=== PATIENT | male | born 1990 | race American Indian/Alaskan Native ===

== ENCOUNTER 2018-08-26 11:34 | Emergency (ER) | payer MEDICAID ==
[~2018-08-26] VITALS: Ht 170.2 cm; Wt 130.0 kg
[~2018-08-26 11:34] MED LIST: ATI1T PO; ESOM20CA PO; ESOM40CA PO; FAMO-128 PO; HYDR-4383 PO; HYDR1TAB PO; METO10TA3 PO; ONDA4TAB6 PO
--- NOTE | 2018-08-26 12:05 | NUR ---
relieving RN for lunch, pt is resting quietly on bed, c/o n/v, "pancreatitis" x6 days, unable to pepe even clear liquid diet, c/o epigastric pain "sharp", 12/30, started IV on 1st attempt, blood drawn, pt unable to give urine sample at this time.
--- NOTE | 2018-08-26 12:10 | NUR ---
1st liter NS infusing w/o
[2018-08-26 12:15] LABS: BASOPHILS # (AUTO) 0.1 X10'3 (0-0.2); BASOPHILS % (AUTO) 0.6 % (0-1); EOSINOPHILS % (AUTO) 0.1 % (0-6); HEMATOCRIT 45.6 % (42.0-52.0); HEMOGLOBIN 16.1 g/dl (14.0-17.9); LYMPHOCYTES # (AUTO) 1.4 X10'3 (1.1-4.8); LYMPHOCYTES % (AUTO) 13.8 % (21-51); MEAN CORPUSCULAR HEMOGLOBIN 30.5 PG (27.0-31.0); MEAN CORPUSCULAR HGB CONC 35.3 g/dL (33.0-36.5); MEAN CORPUSCULAR VOLUME 86.3 FL (78-98); MEAN PLATELET VOLUME 7.8 FL (7.4-10.4); MONOCYTES # (AUTO) 0.7 X10'3 (0-0.9); MONOCYTES % (AUTO) 6.7 % (2-12); NEUTROPHILS % (AUTO) 78.8 % (42-75); PLATELET COUNT 332 X10'3 (140-440); RED BLOOD COUNT 5.28 X10'6 (4.70-6.10); RED CELL DISTRIBUTION WIDTH 13.2 % (11.5-14.5); WHITE BLOOD COUNT 10.2 X10'3 (4.5-11.0)
[2018-08-26 12:28] LABS: ALANINE AMINOTRANSFERASE 50 U/L (12-78); ALBUMIN 4.1 G/DL (3.4-5.0); ALKALINE PHOSPHATASE 49 IU/L (46-116); AMYLASE 27 U/L (25-115); ANION GAP 10 (8-16); ASPARTATE AMINO TRANSFERASE 16 U/L (10-37); BILIRUBIN,TOTAL 2.5 MG/DL (0.1-1.0); BLOOD UREA NITROGEN 14 MG/DL (7-18); BUN/CREATININE RATIO 11.6 (5.4-32.0); CALCIUM 9.2 MG/DL (8.5-10.1); CHLORIDE 97 MMOL/L (99-107); CREATININE 1.21 MG/DL (0.60-1.10); GLUCOSE 105 MG/DL (70-104); LIPASE 165 U/L (73-393); POTASSIUM 3.5 MMOL/L (3.5-5.1); SODIUM 134 MMOL/L (135-145); TOTAL CARBON DIOXIDE 26.9 MMOL/L (24-32); TOTAL PROTEIN 8.2 G/DL (6.4-8.2); eGFR 71 ML/MIN
[2018-08-26] MEDS ORDERED: normal saline 1000ML IV soln IVB ONE ×2 (12:30)
[2018-08-26] MEDS ORDERED: pantoprazole 40 MG vial IV ONE (12:30)
[2018-08-26] MEDS ORDERED: ondansetron/PF 4mg/2ml inj IV ONE (12:30)
[2018-08-26] MEDS ORDERED: ESOMEPRAZOLE 40 MG VIAL IV ONE (12:35)
[2018-08-26] MEDS ORDERED: mag hydrox/Alum hydrox/simeth 30ml oral suspension PO ONE (13:00)
[2018-08-26] MEDS ORDERED: famotidine 20mg tablet PO ONE (13:00)
[2018-08-26] MEDS ORDERED: proCHLORperazine 10 MG/2 ml inj IV ONE (13:00)
[2018-08-26] MEDS ORDERED: LIDOcaine Viscous 15ml cup PO ONE (13:00)
[2018-08-26 14:10] VITALS: BP 146/91
[2018-08-26] MEDS ORDERED: metoclopramide 5 mg/ml inj IV ONE (14:45)
[2018-08-26] MEDS ORDERED: ketorolac trometh. 30mg/ml inj. IV ONE (14:45)
[2018-08-26] MEDS ORDERED: diphenhydrAMINE 50 mg/ml inj IV ONE (14:45)
[2018-08-26] MEDS ORDERED: ONDA8TAB6 PO (14:47)
[2018-08-26] MEDS ORDERED: SUCR1TAB34 PO (14:47)
--- NOTE | 2018-08-26 15:07 | NUR ---
PATIENT FEELING BETTER, FURTHER MEDICATIONS NOT REQUIRED
== END 2018-08-26 15:08 | disposition home or self-care (01) ==
LOC: ER 11:35
DX: R11.2 Nausea with vomiting, unspecified (principal); K21.9 Gastro-esophageal reflux disease without esophagitis; Z90.49 Acquired absence of other specified parts of digestive tract; Z79.899 Other long term (current) drug therapy
CPT/HCPCS: 36415; 80053; 82150; 83690; 85025; 85610; 96361; 96374; 96375; 99283; J0780; J2405; J7030

== ENCOUNTER 2018-10-09 00:52 | Emergency (ER) | payer MEDICAID ==
[~2018-10-09] VITALS: Ht 172.7 cm; Wt 100.0 kg
[~2018-10-09 00:52] MED LIST changes: +ONDA8TAB6 PO; +SUCR1TAB34 PO
[2018-10-09] MEDS ORDERED: ondansetron/PF 4mg/2ml inj IV ONE ×2 (01:15→02:25)
[2018-10-09 01:40] LABS: BASOPHILS # (AUTO) 0.1 X10'3 (0-0.2); BASOPHILS % (AUTO) 0.9 % (0-1); EOSINOPHILS % (AUTO) 0 % (0-6); HEMATOCRIT 50.3 % (42.0-52.0); HEMOGLOBIN 17.6 g/dl (14.0-17.9); LYMPHOCYTES # (AUTO) 1.7 X10'3 (1.1-4.8); LYMPHOCYTES % (AUTO) 15.3 % (21-51); MEAN CORPUSCULAR HEMOGLOBIN 30.1 PG (27.0-31.0); MEAN CORPUSCULAR VOLUME 85.9 FL (78-98); MEAN PLATELET VOLUME 8.1 FL (7.4-10.4); NEUTROPHILS # (AUTO) 8.6 X10'3 (1.8-7.7); NEUTROPHILS % (AUTO) 74.8 % (42-75); PLATELET COUNT 303 X10'3 (140-440); RED BLOOD COUNT 5.85 X10'6 (4.70-6.10); RED CELL DISTRIBUTION WIDTH 13.4 % (11.5-14.5); WHITE BLOOD COUNT 11.4 X10'3 (4.5-11.0)
[2018-10-09 01:52] LABS: ALANINE AMINOTRANSFERASE 33 U/L (12-78); ALBUMIN 4.6 G/DL (3.4-5.0); ALBUMIN/GLOBULIN RATIO 1.1 (1.1-1.5); ALKALINE PHOSPHATASE 51 IU/L (46-116); ANION GAP 13 (8-16); ASPARTATE AMINO TRANSFERASE 14 U/L (10-37); BILIRUBIN,TOTAL 2.8 MG/DL (0.1-1.0); BLOOD UREA NITROGEN 12 MG/DL (7-18); BUN/CREATININE RATIO 9.2 (5.4-32.0); CALCIUM 9.2 MG/DL (8.5-10.1); CHLORIDE 98 MMOL/L (99-107); GLUCOSE 153 MG/DL (70-104); POTASSIUM 3.1 MMOL/L (3.5-5.1); SODIUM 134 MMOL/L (135-145); TOTAL CARBON DIOXIDE 23.4 MMOL/L (24-32); TOTAL PROTEIN 8.8 G/DL (6.4-8.2); eGFR 65 ML/MIN
[2018-10-09] MEDS ORDERED: diphenhydrAMINE 50 mg/ml inj IV ONE (02:25)
[2018-10-09] MEDS ORDERED: proCHLORperazine 10 MG/2 ml inj IV ONE (02:25)
[2018-10-09] MEDS ORDERED: mag hydrox/Alum hydrox/simeth 30ml oral suspension PO ONE (02:25)
[2018-10-09] MEDS ORDERED: LIDOcaine Viscous 15ml cup PO ONE (02:25)
[2018-10-09] MEDS ORDERED: potassium Cl 20mEq in D5-NS 1,000 ML IV ONE (02:25)
[2018-10-09] MEDS ORDERED: pantoprazole 40 MG vial IV ONE (02:25)
[2018-10-09] MEDS ORDERED: LORazepam 2 mg/ml vial IV ONE (02:25)
[2018-10-09] MEDS ORDERED: famotidine/PF 10 mg/ml inj IV ONE (02:25)
[2018-10-09] MEDS ORDERED: ESOMEPRAZOLE 40 MG VIAL IV ONE (02:32)
[2018-10-09 02:34] LABS: LIPASE 103 U/L (73-393)
[2018-10-09] MEDS ORDERED: ONDA8TAB6 PO (04:09)
[2018-10-09] MEDS ORDERED: PANT-47 PO (04:09)
[2018-10-09] MEDS ORDERED: SUCR1TAB34 PO (04:09)
[2018-10-09 04:42] VITALS: BP 135/80
== END 2018-10-09 06:09 | disposition home or self-care (01) ==
LOC: ER 00:53
DX: K29.00 Acute gastritis without bleeding (principal); F41.9 Anxiety disorder, unspecified; K21.9 Gastro-esophageal reflux disease without esophagitis; Z90.49 Acquired absence of other specified parts of digestive tract; Z79.899 Other long term (current) drug therapy
CPT/HCPCS: 36415; 80053; 83690; 85025; 85610; 96361; 96374; 96375; 99284; J0780; J1200; J2060; J2405; J3480; J3490

== ENCOUNTER 2018-11-13 00:06 | Emergency (ER) | payer MEDICAID ==
[~2018-11-13] VITALS: Ht 167.6 cm; Wt 92.5 kg
[~2018-11-13 00:06] MED LIST changes: +PANT-47 PO
[2018-11-13] MEDS ORDERED: ondansetron/PF 4mg/2ml inj IV ONE (01:00)
--- NOTE | 2018-11-13 01:01 | NUR ---
piv in place, labs drawn, verbal rec eived from dr. patterson for zofran 8 mg iv. pt reprots he thinks a gi cocktail will help him once he gets some antinausea meds. has had episode like this before.
[2018-11-13 01:15] LABS: BASOPHILS # (AUTO) 0.1 X10'3 (0-0.2); BASOPHILS % (AUTO) 0.5 % (0-1); EOSINOPHILS % (AUTO) 0 % (0-6); HEMOGLOBIN 17.1 g/dl (14.0-17.9); LYMPHOCYTES # (AUTO) 0.9 X10'3 (1.1-4.8); LYMPHOCYTES % (AUTO) 8.4 % (21-51); MEAN CORPUSCULAR HEMOGLOBIN 30.1 PG (27.0-31.0); MEAN CORPUSCULAR HGB CONC 34.3 g/dL (33.0-36.5); MEAN CORPUSCULAR VOLUME 87.6 FL (78-98); MEAN PLATELET VOLUME 7.5 FL (7.4-10.4); MONOCYTES # (AUTO) 0.2 X10'3 (0-0.9); MONOCYTES % (AUTO) 2.1 % (2-12); PLATELET COUNT 349 X10'3 (140-440); RED CELL DISTRIBUTION WIDTH 13.6 % (11.5-14.5); WHITE BLOOD COUNT 11.2 X10'3 (4.5-11.0)
[2018-11-13] MEDS ORDERED: famotidine/PF 10 mg/ml inj IV ONE (01:20)
[2018-11-13] MEDS ORDERED: pantoprazole 40 MG vial IV ONE (01:20)
[2018-11-13] MEDS ORDERED: normal saline 1000ml 1,000 ML IV ONE ×2 (01:20→04:20)
[2018-11-13] MEDS ORDERED: LIDOcaine Viscous 15ml cup PO ONE (01:20)
[2018-11-13] MEDS ORDERED: mag hydrox/Alum hydrox/simeth 30ml oral suspension PO ONE (01:20)
[2018-11-13 01:26] LABS: ALANINE AMINOTRANSFERASE 33 U/L (12-78); ALBUMIN 4.6 G/DL (3.4-5.0); ALKALINE PHOSPHATASE 52 IU/L (46-116); ANION GAP 14 (8-16); ASPARTATE AMINO TRANSFERASE 15 U/L (10-37); BILIRUBIN,TOTAL 1.4 MG/DL (0.1-1.0); BLOOD UREA NITROGEN 13 MG/DL (7-18); BUN/CREATININE RATIO 10.1 (5.4-32.0); CALCIUM 10.3 MG/DL (8.5-10.1); CHLORIDE 104 MMOL/L (99-107); CREATININE 1.29 MG/DL (0.60-1.10); GLUCOSE 142 MG/DL (70-104); LIPASE 112 U/L (73-393); POTASSIUM 4.2 MMOL/L (3.5-5.1); SODIUM 141 MMOL/L (135-145); TOTAL CARBON DIOXIDE 23.1 MMOL/L (24-32); eGFR 65 ML/MIN
[2018-11-13] MEDS ORDERED: metoclopramide 5 mg/ml inj IV ONE (02:15)
[2018-11-13] MEDS ORDERED: ketorolac trometh. 30mg/ml inj. IV ONE (02:30)
[2018-11-13] MEDS ORDERED: diphenhydrAMINE 50 mg/ml inj IV ONE (02:30)
[2018-11-13] MEDS ORDERED: fentaNYL/PF 50MCG/1 ML 2ML syringe IV ONE (02:30)
[2018-11-13] MEDS ORDERED: sucralfate 1gm/10ml UD suspension PO ONE (02:30)
[2018-11-13] MEDS ORDERED: LORazepam 2 mg/ml vial IV ONE (02:30)
[2018-11-13] MEDS ORDERED: proCHLORperazine 10 MG/2 ml inj IV ONE (03:10)
[2018-11-13 03:21] LABS: CLARITY,URINE CLEAR (Clear); COLOR,URINE AMBER (Yellow); GLUCOSE, URINE NEGATIVE (Neg); KETONES,URINE >=80 mg/dl (Neg); LEUKOCYTE ESTERASE ,URINE NEGATIVE (Neg); NITRITES, URINE NEGATIVE (Neg); OCCULT BLOOD,URINE NEGATIVE (Neg); PROTEIN,URINE 30 mg/dl (Neg)
[2018-11-13 03:22] LABS: UA COLLECTION TYPE CLN CATCH MIDSTREAM
[2018-11-13 03:31] LABS: BACTERIA,URINE NONE SEEN /HPF (Neg); MUCUS STRANDS MODERATE /LPF (Neg); SQUAMOUS EPITHELIAL CELL,UR NONE SEEN /LPF (FEW); WBC,URINE NONE SEEN /HPF (0-4)
[2018-11-13 03:32] LABS: RBC,URINE 0-2 /HPF (0-2)
[2018-11-13] MEDS ORDERED: haloperidol lactate 5mg/ml inj IM ONE (04:20)
[2018-11-13] MEDS ORDERED: ONDA8TAB6 PO (05:11)
[2018-11-13] MEDS ORDERED: PANT-47 PO (05:11)
[2018-11-13] MEDS ORDERED: SUCR1TAB34 PO (05:11)
[2018-11-13 06:00] VITALS: BP 130/77
== END 2018-11-13 06:05 | disposition home or self-care (01) ==
LOC: ER 00:07
DX: K29.70 Gastritis, unspecified, without bleeding (principal); K21.9 Gastro-esophageal reflux disease without esophagitis; F12.90 Cannabis use, unspecified, uncomplicated; Z90.49 Acquired absence of other specified parts of digestive tract; Z88.8 Allergy status to other drugs, medicaments and biological substances; Z79.899 Other long term (current) drug therapy
CPT/HCPCS: 36415; 80053; 81001; 83690; 85025; 96361; 96372; 96374; 96375; 99283; C9113; J0780; J1200; J1630; J1885; J2060; J2405; J2765; J3010; J3490; J7030

== ENCOUNTER 2018-12-04 22:36 | Emergency (ER) | payer MEDICAID ==
[~2018-12-04] VITALS: Ht 172.7 cm; Wt 90.0 kg
[2018-12-04 23:22] LABS: ALANINE AMINOTRANSFERASE 32 U/L (12-78); ALBUMIN 4.2 G/DL (3.4-5.0); ALBUMIN/GLOBULIN RATIO 1.1 (1.1-1.5); ALKALINE PHOSPHATASE 42 IU/L (46-116); ANION GAP 10 (8-16); ASPARTATE AMINO TRANSFERASE 15 U/L (10-37); BILIRUBIN,TOTAL 2.5 MG/DL (0.1-1.0); BLOOD UREA NITROGEN 13 MG/DL (7-18); BUN/CREATININE RATIO 9.7 (5.4-32.0); CALCIUM 9.3 MG/DL (8.5-10.1); CHLORIDE 100 MMOL/L (99-107); CREATININE 1.34 MG/DL (0.60-1.10); GLUCOSE 106 MG/DL (70-104); POTASSIUM 3.6 MMOL/L (3.5-5.1); SODIUM 139 MMOL/L (135-145); TOTAL CARBON DIOXIDE 29.4 MMOL/L (24-32); TOTAL PROTEIN 8.1 G/DL (6.4-8.2); eGFR 63 ML/MIN
[2018-12-04] MEDS ORDERED: DOCU100C41 PO (23:30)
--- NOTE | 2018-12-04 23:39 | NUR ---
PT STATES HE HAS NO URINE TO PROVIDE
[2018-12-05 00:01] LABS: BASOPHILS # (AUTO) 0.1 X10'3 (0-0.2); BASOPHILS % (AUTO) 0.7 % (0-1); EOSINOPHILS % (AUTO) 0.4 % (0-6); HEMATOCRIT 47.5 % (42.0-52.0); HEMOGLOBIN 16.5 g/dl (14.0-17.9); LYMPHOCYTES # (AUTO) 1.9 X10'3 (1.1-4.8); MEAN CORPUSCULAR HEMOGLOBIN 30.6 PG (27.0-31.0); MEAN CORPUSCULAR HGB CONC 34.8 g/dL (33.0-36.5); MEAN CORPUSCULAR VOLUME 88.1 FL (78-98); MEAN PLATELET VOLUME 8.3 FL (7.4-10.4); MONOCYTES # (AUTO) 0.7 X10'3 (0-0.9); NEUTROPHILS # (AUTO) 7.6 X10'3 (1.8-7.7); NEUTROPHILS % (AUTO) 73.9 % (42-75); PLATELET COUNT 337 X10'3 (140-440); RED CELL DISTRIBUTION WIDTH 13.7 % (11.5-14.5); WHITE BLOOD COUNT 10.3 X10'3 (4.5-11.0)
[2018-12-05] MEDS ORDERED: LIDOcaine Viscous 15ml cup PO ONE (00:40)
[2018-12-05] MEDS ORDERED: mag hydrox/Alum hydrox/simeth 30ml oral suspension PO ONE (00:40)
[2018-12-05] MEDS ORDERED: pantoprazole 40 MG vial IV ONE (00:40)
[2018-12-05] MEDS ORDERED: normal saline 1000ML IV soln IVB ONE ×2 (00:40→02:55)
[2018-12-05] MEDS ORDERED: ondansetron/PF 4mg/2ml inj IV ONE (00:40)
[2018-12-05 00:53] LABS: LIPASE 107 U/L (73-393)
[2018-12-05] MEDS: morphine 2 MG/ML inj. syringe IV PRN ×2 (02:02→02:18)
[2018-12-05 02:08] LABS: CLARITY,URINE CLEAR (Clear); COLOR,URINE AMBER (Yellow); GLUCOSE, URINE NEGATIVE (Neg); KETONES,URINE 15 mg/dl (Neg); LEUKOCYTE ESTERASE ,URINE NEGATIVE (Neg); NITRITES, URINE NEGATIVE (Neg); OCCULT BLOOD,URINE NEGATIVE (Neg); PH,URINE 5.5 (4.8-8.0); PROTEIN,URINE TRACE mg/dl (Neg)
[2018-12-05 02:09] LABS: UA COLLECTION TYPE VOIDED
--- NOTE | 2018-12-05 02:22 | NUR ---
COVERED HIM WITH ANOTHER WARMED BLANKET.
[2018-12-05 02:39] LABS: RBC,URINE 0-2 /HPF (0-2)
[2018-12-05 02:40] LABS: BACTERIA,URINE FEW /HPF (Neg); MUCUS STRANDS MANY /LPF (Neg); SQUAMOUS EPITHELIAL CELL,UR NONE SEEN /LPF (FEW)
[2018-12-05] MEDS ORDERED: ONDA4TAB6 PO (02:55)
[2018-12-05] MEDS ORDERED: morphine 2 MG/ML inj. syringe IV PRN (02:55)
[2018-12-05] MEDS ORDERED: ketorolac tromethamine 15mg/ml inj. IV ONE (02:55)
[2018-12-05 04:14] VITALS: BP 127/77
== END 2018-12-05 04:16 | disposition home or self-care (01) ==
LOC: ER 22:38
DX: E86.0 Dehydration (principal); R11.10 Vomiting, unspecified; R10.84 Generalized abdominal pain; K21.9 Gastro-esophageal reflux disease without esophagitis; Z90.49 Acquired absence of other specified parts of digestive tract; Z79.899 Other long term (current) drug therapy; Z88.6 Allergy status to analgesic agent; Z88.5 Allergy status to narcotic agent
CPT/HCPCS: 36415; 80053; 81001; 83690; 83735; 85025; 85610; 87088; 96361; 96374; 96375; 99283; C9113; J1885; J2270; J2405; J7030

== ENCOUNTER 2019-11-28 | Observation (INO) | payer MEDICAID ==
[~2019-11-28] VITALS: Ht 177.8 cm; Wt 109.1 kg
[~2019-11-28] MED LIST changes: -ATI1T PO; +DOCU100C41 PO; -ESOM20CA PO; -ESOM40CA PO; -HYDR-4383 PO; -HYDR1TAB PO; -METO10TA3 PO; -PANT-47 PO
[2019-11-28 00:50] LABS: BASOPHILS # (AUTO) 0.1 X10'3 (0-0.2); BASOPHILS % (AUTO) 0.5 % (0-1); EOSINOPHILS % (AUTO) 0.3 % (0-6); HEMATOCRIT 50.3 % (42.0-52.0); HEMOGLOBIN 17.3 g/dl (14.0-17.9); LYMPHOCYTES % (AUTO) 14.5 % (21-51); MEAN CORPUSCULAR HEMOGLOBIN 30.8 PG (27.0-31.0); MEAN CORPUSCULAR HGB CONC 34.4 g/dL (33.0-36.5); MEAN CORPUSCULAR VOLUME 89.5 FL (78-98); MEAN PLATELET VOLUME 7.8 FL (7.4-10.4); MONOCYTES # (AUTO) 0.9 X10'3 (0-0.9); MONOCYTES % (AUTO) 6.6 % (2-12); NEUTROPHILS # (AUTO) 10.9 X10'3 (1.8-7.7); NEUTROPHILS % (AUTO) 78.1 % (42-75); PLATELET COUNT 421 X10'3 (140-440); RED BLOOD COUNT 5.62 X10'6 (4.70-6.10); RED CELL DISTRIBUTION WIDTH 13.7 % (11.5-14.5); WHITE BLOOD COUNT 13.9 X10'3 (4.5-11.0)
[2019-11-28 00:56] LABS: CLARITY,URINE CLEAR (Clear); COLOR,URINE YELLOW (Yellow); GLUCOSE, URINE NEGATIVE (Neg); KETONES,URINE NEGATIVE (Neg); LEUKOCYTE ESTERASE ,URINE NEGATIVE (Neg); NITRITES, URINE NEGATIVE (Neg); OCCULT BLOOD,URINE NEGATIVE (Neg); PH,URINE 5.5 (4.8-8.0); PROTEIN,URINE TRACE mg/dl (Neg)
[2019-11-28 00:58] LABS: ALANINE AMINOTRANSFERASE 35 U/L (12-78); ALBUMIN 4.6 G/DL (3.4-5.0); ALKALINE PHOSPHATASE 46 IU/L (46-116); ANION GAP 12 (8-16); ASPARTATE AMINO TRANSFERASE 16 U/L (10-37); BILIRUBIN,TOTAL 1.5 MG/DL (0.1-1.0); BLOOD UREA NITROGEN 22 MG/DL (7-18); BUN/CREATININE RATIO 11.6 (5.4-32.0); CALCIUM 9.7 MG/DL (8.5-10.1); CHLORIDE 98 MMOL/L (99-107); GLUCOSE 142 MG/DL (70-104); LIPASE 119 U/L (73-393); POTASSIUM 3.5 MMOL/L (3.5-5.1); SODIUM 137 MMOL/L (135-145); TOTAL CARBON DIOXIDE 27.3 MMOL/L (24-32); TOTAL PROTEIN 9.3 G/DL (6.4-8.2); eGFR 42 ML/MIN
[2019-11-28 01:15] LABS: BACTERIA,URINE FEW /HPF (Neg); MUCUS STRANDS MANY /LPF (Neg); RBC,URINE NONE SEEN /HPF (0-2); SQUAMOUS EPITHELIAL CELL,UR FEW /LPF (FEW); UA COLLECTION TYPE CLN CATCH MIDSTREAM
[2019-11-28] MEDS ORDERED: famotidine/PF 10 mg/ml inj IV ONE (01:40)
[2019-11-28] MEDS ORDERED: ondansetron/PF 4mg/2ml inj IV ONE (01:40)
[2019-11-28] MEDS ORDERED: normal saline 1000ml 1,000 ML IV ONE ×2 (01:40)
[2019-11-28] MEDS ORDERED: morphine 10mg/ml inj. IV ONE ×2 (02:10→03:35)
[2019-11-28] MEDS ORDERED: haloperidol lactate 5mg/ml inj IM ONE (02:10)
[2019-11-28] MEDS ORDERED: mag hydrox/Alum hydrox/simeth 30ml oral suspension PO PRN (04:00)
[2019-11-28] MEDS ORDERED: potassium Cl 20 mEq SR tablet PO PRN ×2 (04:00)
[2019-11-28] MEDS ORDERED: magnesium hydroxide 30ml (MOM) UD suspension PO PRN (04:00)
[2019-11-28] MEDS ORDERED: acetaminophen 325mg tablet PO PRN (04:00)
[2019-11-28] MEDS ORDERED: magnesium 4gm in 100ml NS 100 ML IV PRN (04:00)
[2019-11-28] MEDS ORDERED: potassium CL 10mEq/100ml bag 100 ML IV PRN ×2 (04:00)
[2019-11-28] MEDS ORDERED: magnesium Cl slow-release 64mg tablet PO PRN (04:00)
[2019-11-28] MEDS ORDERED: proCHLORperazine 10 MG/2 ml inj IV PRN (04:00)
[2019-11-28] MEDS ORDERED: magnesium 2GM in 50ml NS 50 ML IV PRN (04:00)
[2019-11-28] MEDS ORDERED: OMEP40CA13 PO (04:34)
[2019-11-28 05:30] VITALS: BP 116/70
--- NOTE | 2019-11-28 05:30 | NUR ---
RECEIVED PT FROM ER VIA WC FOLLOWING VERBAL REPORT FROM SUKHI. SUSANA, 2 RN SKIN CHECK COMPLETE. PT C/O NAUSEA. COMPAZINE IV ADMINISTERED.
[2019-11-28] MEDS: normal saline 1000ml 1,000 ML IV SCH ×3 (05:46→15:05)
--- NOTE | 2019-11-28 06:15 | NUR ---
Patient in room [facility]. I have received report from Ewa WHITFIELD and had the opportunity to ask questions and assume patient care.
--- NOTE | 2019-11-28 06:36 | NUR ---
Problems reprioritized. Patient report given, questions answered & plan of care reviewed with GUY.
[2019-11-28 07:34] VITALS: BP 115/71
[2019-11-28] MEDS: K and/or MAG REPLACEMENT MC SCH ×2 (08:00→20:00)
[2019-11-28] MEDS: pantoprazole 40 MG vial IV SCH (08:42)
[2019-11-28] MEDS: ondansetron/PF 4mg/2ml inj IV PRN (08:51)
[2019-11-28 11:00] VITALS: BP 116/73
[2019-11-28] MEDS: HYDROcodone/acetaminophen 5mg/325mg tablet PO PRN ×3 (13:11→23:05)
--- NOTE | 2019-11-28 14:30 | NUR ---
Dr. Yates paged regarding CT results. Awaiting callback.
[2019-11-28] MEDS ORDERED: ONDA4TAB12 PO (16:29)
--- NOTE | 2019-11-28 18:33 | NUR ---
Problems reprioritized. Patient report given, questions answered & plan of care reviewed with Jennifer WHITFIELD.
--- NOTE | 2019-11-28 18:34 | NUR ---
Problems reprioritized. Patient report given, questions answered & plan of care reviewed with Jennifer WHITFIELD.
--- NOTE | 2019-11-28 18:36 | NUR ---
Patient in room [facility]. I have received report from Tracie WHITFIELD and had the opportunity to ask questions and assume patient care.
[2019-11-28 20:00] VITALS: BP 116/78
[2019-11-28] MEDS: morphine 2 MG/ML inj. syringe IV PRN (20:36)
[2019-11-29 00:17] VITALS: BP 127/86
[2019-11-29] MEDS: normal saline 1000ml 1,000 ML IV SCH (00:56)
[2019-11-29] MEDS: morphine 2 MG/ML inj. syringe IV PRN (04:39)
[2019-11-29 05:29] LABS: BASOPHILS # (AUTO) 0.1 X10'3 (0-0.2); BASOPHILS % (AUTO) 0.9 % (0-1); EOSINOPHILS # (AUTO) 0.1 X10'3 (0-0.9); EOSINOPHILS % (AUTO) 1.4 % (0-6); HEMATOCRIT 39.2 % (42.0-52.0); HEMOGLOBIN 13.7 g/dl (14.0-17.9); LYMPHOCYTES # (AUTO) 3.3 X10'3 (1.1-4.8); LYMPHOCYTES % (AUTO) 41.6 % (21-51); MEAN CORPUSCULAR HEMOGLOBIN 31.2 PG (27.0-31.0); MEAN CORPUSCULAR HGB CONC 34.9 g/dL (33.0-36.5); MEAN CORPUSCULAR VOLUME 89.4 FL (78-98); MEAN PLATELET VOLUME 7.4 FL (7.4-10.4); MONOCYTES # (AUTO) 0.6 X10'3 (0-0.9); MONOCYTES % (AUTO) 7.4 % (2-12); NEUTROPHILS # (AUTO) 3.9 X10'3 (1.8-7.7); NEUTROPHILS % (AUTO) 48.7 % (42-75); PLATELET COUNT 270 X10'3 (140-440); RED BLOOD COUNT 4.39 X10'6 (4.70-6.10); RED CELL DISTRIBUTION WIDTH 13.2 % (11.5-14.5); WHITE BLOOD COUNT 7.9 X10'3 (4.5-11.0)
[2019-11-29 05:59] LABS: ALANINE AMINOTRANSFERASE 25 U/L (12-78); ALBUMIN 3.1 G/DL (3.4-5.0); ALKALINE PHOSPHATASE 28 IU/L (46-116); ANION GAP 5 (8-16); ASPARTATE AMINO TRANSFERASE 17 U/L (10-37); BILIRUBIN,TOTAL 1.3 MG/DL (0.1-1.0); BLOOD UREA NITROGEN 12 MG/DL (7-18); BUN/CREATININE RATIO 11.3 (5.4-32.0); CALCIUM 7.8 MG/DL (8.5-10.1); CHLORIDE 105 MMOL/L (99-107); CREATININE 1.06 MG/DL (0.60-1.10); GLUCOSE 92 MG/DL (70-104); MAGNESIUM 2.1 MG/DL (1.5-2.4); POTASSIUM 3.7 MMOL/L (3.5-5.1); SODIUM 137 MMOL/L (135-145); TOTAL CARBON DIOXIDE 27.2 MMOL/L (24-32); TOTAL PROTEIN 6.1 G/DL (6.4-8.2); eGFR 81 ML/MIN
--- NOTE | 2019-11-29 06:29 | NUR ---
Problems reprioritized. Patient report given, questions answered & plan of care reviewed with Tracie WHITFIELD.
--- NOTE | 2019-11-29 06:30 | NUR ---
Patient in room [facility]. I have received report from Jennifer WHITFIELD and had the opportunity to ask questions and assume patient care.
--- NOTE | 2019-11-29 06:41 | NUR ---
Patient in room [facility]. I have received report from Jennifer WHITFIELD and had the opportunity to ask questions and assume patient care.
[2019-11-29 08:00] VITALS: BP 135/82
[2019-11-29] MEDS: K and/or MAG REPLACEMENT MC SCH (08:00)
[2019-11-29] MEDS: pantoprazole 40 MG vial IV SCH (08:26)
[2019-11-29] MEDS: ondansetron/PF 4mg/2ml inj IV PRN (08:33)
[2019-11-29] MEDS: HYDROcodone/acetaminophen 5mg/325mg tablet PO PRN (09:25)
== END 2019-11-29 11:38 | disposition home or self-care (01) ==
LOC: ER → ED HOLD 03:56 → SUR 3N 05:35
PROVIDERS: ADMIT Family Medicine; ATTEND Family Medicine
DX: R11.2 Nausea with vomiting, unspecified (principal); N17.0 Acute kidney failure with tubular necrosis; K21.9 Gastro-esophageal reflux disease without esophagitis; Z87.19 Personal history of other diseases of the digestive system; Z90.49 Acquired absence of other specified parts of digestive tract; Z88.8 Allergy status to other drugs, medicaments and biological substances
CPT/HCPCS: 36415; 74176; 80053; 81001; 83690; 83735; 85025; 87081; 87088; 96361; 96372; 96374; 96375; 96376; 99285; C9113; G0378; J0780; J1630; J2270; J2405; J3490; J7030

== ENCOUNTER 2020-01-05 10:24 | Emergency (ER) | payer MEDICAID ==
[~2020-01-05] VITALS: Ht 172.7 cm; Wt 108.9 kg
[~2020-01-05 10:24] MED LIST changes: -DOCU100C41 PO; -FAMO-128 PO; +OMEP40CA13 PO; +ONDA4TAB12 PO; -ONDA4TAB6 PO; -ONDA8TAB6 PO; -SUCR1TAB34 PO
[2020-01-05] MEDS ORDERED: normal saline 1000ML IV soln IVB ONE ×2 (11:10→12:15)
[2020-01-05] MEDS ORDERED: ondansetron/PF 4mg/2ml inj IV ONE (11:10)
[2020-01-05 11:30] LABS: BASOPHILS # (AUTO) 0.1 X10'3 (0-0.2); BASOPHILS % (AUTO) 0.6 % (0-1); EOSINOPHILS % (AUTO) 0.1 % (0-6); HEMATOCRIT 48.4 % (42.0-52.0); HEMOGLOBIN 16.6 g/dl (14.0-17.9); LYMPHOCYTES # (AUTO) 1.4 X10'3 (1.1-4.8); LYMPHOCYTES % (AUTO) 13.5 % (21-51); MEAN CORPUSCULAR HEMOGLOBIN 30.5 PG (27.0-31.0); MEAN CORPUSCULAR HGB CONC 34.3 g/dL (33.0-36.5); MEAN CORPUSCULAR VOLUME 89.2 FL (78-98); MEAN PLATELET VOLUME 7.5 FL (7.4-10.4); MONOCYTES # (AUTO) 0.8 X10'3 (0-0.9); MONOCYTES % (AUTO) 7.9 % (2-12); NEUTROPHILS # (AUTO) 8.3 X10'3 (1.8-7.7); NEUTROPHILS % (AUTO) 77.9 % (42-75); PLATELET COUNT 334 X10'3 (140-440); RED BLOOD COUNT 5.43 X10'6 (4.70-6.10); WHITE BLOOD COUNT 10.7 X10'3 (4.5-11.0)
[2020-01-05 12:00] LABS: CLARITY,URINE CLEAR (Clear); COLOR,URINE YELLOW (Yellow); GLUCOSE, URINE NEGATIVE (Neg); KETONES,URINE NEGATIVE (Neg); LEUKOCYTE ESTERASE ,URINE NEGATIVE (Neg); NITRITES, URINE NEGATIVE (Neg); OCCULT BLOOD,URINE NEGATIVE (Neg); PROTEIN,URINE 30 mg/dl (Neg)
[2020-01-05 12:00] LABS: ALANINE AMINOTRANSFERASE 28 U/L (12-78); ALBUMIN 4.5 G/DL (3.4-5.0); ALKALINE PHOSPHATASE 43 IU/L (46-116); ANION GAP 13 (8-16); ASPARTATE AMINO TRANSFERASE 15 U/L (10-37); BILIRUBIN,TOTAL 2.6 MG/DL (0.1-1.0); BLOOD UREA NITROGEN 16 MG/DL (7-18); BUN/CREATININE RATIO 13.3 (5.4-32.0); CALCIUM 9.6 MG/DL (8.5-10.1); CHLORIDE 98 MMOL/L (99-107); GLUCOSE 115 MG/DL (70-104); LIPASE 150 U/L (73-393); POTASSIUM 3.4 MMOL/L (3.5-5.1); SODIUM 137 MMOL/L (135-145); TOTAL CARBON DIOXIDE 26.5 MMOL/L (24-32); TOTAL PROTEIN 8.8 G/DL (6.4-8.2); eGFR 71 ML/MIN
[2020-01-05 12:01] LABS: ETHANOL < 0.010 GM/DL (0.0-0.010)
[2020-01-05 12:06] LABS: UA COLLECTION TYPE CLN CATCH MIDSTREAM
[2020-01-05 12:08] LABS: MUCUS STRANDS MANY /LPF (Neg); SQUAMOUS EPITHELIAL CELL,UR FEW /LPF (FEW)
[2020-01-05 12:09] LABS: BACTERIA,URINE 1+ /HPF (Neg); RBC,URINE 0-2 /HPF (0-2); WBC,URINE 0-4 /HPF (0-4)
[2020-01-05 12:14] LABS: URINE AMPHETAMINE SCREEN NEGATIVE (Neg); URINE BARBITUATE SCREEN NEGATIVE (Neg); URINE BENZODIAZEPINES SCREEN NEGATIVE (Neg); URINE CANNABINOID SCREEN POSITIVE (Neg); URINE COCAINE SCREEN NEGATIVE (Neg); URINE METHADONE SCREEN NEGATIVE (Neg); URINE OPIATE SCREEN NEGATIVE (Neg); URINE PHENCYCLIDINE SCREEN NEGATIVE (Neg)
[2020-01-05] MEDS ORDERED: ketorolac trometh. 30mg/ml inj. IV ONE (12:15)
[2020-01-05 13:19] VITALS: BP 132/104
--- NOTE | 2020-01-05 13:20 | NUR ---
po challenge performed w/ 30ml h2o; no emesis @ this time or c/o increased abdominal pain.
[2020-01-05] MEDS ORDERED: ONDA4TAB6 PO (14:01)
[2020-01-05] MEDS ORDERED: ondansetron 4mg rapidly disintigrating tab PO ONE (14:20)
== END 2020-01-05 14:00 | disposition home or self-care (01) ==
LOC: ER 10:25
DX: E80.6 Other disorders of bilirubin metabolism (principal); R10.84 Generalized abdominal pain; R11.10 Vomiting, unspecified; K21.9 Gastro-esophageal reflux disease without esophagitis; Z72.89 Other problems related to lifestyle; Z88.8 Allergy status to other drugs, medicaments and biological substances; Z79.899 Other long term (current) drug therapy
CPT/HCPCS: 36415; 76700; 80053; 80305; 80320; 81001; 83690; 85025; 96361; 96374; 96375; 99284; J1885; J2405; J7030

== ENCOUNTER 2020-01-06 13:37 | Inpatient (IN) | payer MEDICAID ==
[~2020-01-06] VITALS: Ht 170.2 cm; Wt 113.5 kg
[~2020-01-06 13:37] MED LIST changes: +ONDA4TAB6 PO
[2020-01-06 14:08] LABS: CLARITY,URINE CLEAR (Clear); COLOR,URINE YELLOW (Yellow); GLUCOSE, URINE NEGATIVE (Neg); KETONES,URINE TRACE mg/dl (Neg); LEUKOCYTE ESTERASE ,URINE NEGATIVE (Neg); NITRITES, URINE NEGATIVE (Neg); OCCULT BLOOD,URINE NEGATIVE (Neg); PROTEIN,URINE NEGATIVE (Neg); UA COLLECTION TYPE CLN CATCH MIDSTREAM; UROBILINOGEN,URINE >=8.0 E.U/dL (0.2-1.0)
[2020-01-06] MEDS ORDERED: diphenhydrAMINE 50 mg/ml inj IV ONE (14:40)
[2020-01-06] MEDS ORDERED: normal saline 1000ml 1,000 ML IV ONE (14:40)
[2020-01-06] MEDS ORDERED: proCHLORperazine 10 MG/2 ml inj IV ONE (14:40)
[2020-01-06] MEDS ORDERED: famotidine/PF 10 mg/ml inj IV ONE (14:40)
[2020-01-06 15:32] LABS: ALANINE AMINOTRANSFERASE 25 U/L (12-78); ALBUMIN 3.9 G/DL (3.4-5.0); ALBUMIN/GLOBULIN RATIO 1.1 (1.1-1.5); ALKALINE PHOSPHATASE 37 IU/L (46-116); ANION GAP 8 (8-16); ASPARTATE AMINO TRANSFERASE 15 U/L (10-37); BILIRUBIN,TOTAL 3.7 MG/DL (0.1-1.0); BLOOD UREA NITROGEN 15 MG/DL (7-18); BUN/CREATININE RATIO 14.6 (5.4-32.0); CALCIUM 8.4 MG/DL (8.5-10.1); CHLORIDE 102 MMOL/L (99-107); CREATININE 1.03 MG/DL (0.60-1.10); GLUCOSE 104 MG/DL (70-104); POTASSIUM 3.1 MMOL/L (3.5-5.1); SODIUM 136 MMOL/L (135-145); TOTAL PROTEIN 7.4 G/DL (6.4-8.2); eGFR 84 ML/MIN
[2020-01-06 16:08] LABS: BILIRUBIN,DIRECT 0.4 MG/DL (0-0.3)
[2020-01-06] MEDS ORDERED: morphine 10mg/ml inj. IV ONE (17:20)
[2020-01-06] MEDS ORDERED: iohexol 300mg/ml 100ml inj. ONE (17:25)
[2020-01-06] MEDS ORDERED: potassium Cl 20 mEq SR tablet PO STA (19:08)
[2020-01-06] MEDS ORDERED: proMETHazine 6.25 mg/5 ml UD oral syrup PO PRN (20:10)
[2020-01-06] MEDS ORDERED: acetaminophen 325mg tablet PO PRN (20:10)
[2020-01-06] MEDS ORDERED: ondansetron/PF 4mg/2ml inj IV PRN (20:10)
[2020-01-06] MEDS ORDERED: magnesium 2GM in 50ml NS 50 ML IV PRN (20:10)
[2020-01-06] MEDS ORDERED: magnesium Cl slow-release 64mg tablet PO PRN (20:10)
[2020-01-06] MEDS ORDERED: magnesium 4gm in 100ml NS 100 ML IV PRN (20:10)
[2020-01-06] MEDS ORDERED: potassium CL 10mEq/100ml bag 100 ML IV PRN ×2 (20:10)
[2020-01-06] MEDS ORDERED: mag hydrox/Alum hydrox/simeth 30ml oral suspension PO PRN (20:10)
[2020-01-06] MEDS ORDERED: potassium Cl 20 mEq SR tablet PO PRN ×2 (20:10)
[2020-01-06] MEDS ORDERED: proMETHazine 25mg rectal suppository RC PRN (20:10)
[2020-01-06] MEDS ORDERED: proCHLORperazine 10 MG/2 ml inj IV PRN (20:10)
[2020-01-06] MEDS ORDERED: magnesium hydroxide 30ml (MOM) UD suspension PO PRN (20:10)
[2020-01-06 22:35] VITALS: BP 124/72
--- NOTE | 2020-01-06 22:35 | NUR ---
PATIENT ADMITTED TO ROOM 3015B FROM ER FOR GASTROENTERITIS. PLACED COMFORTABLE IN BED. VITAL SIGNS TAKEN AND RECORDED.
[2020-01-06] MEDS: potassium Cl 20mEq in NS 1,000 ML IV SCH (23:23)
[2020-01-07] MEDS ORDERED: morphine 2 MG/ML inj. syringe IV PRN (02:55)
[2020-01-07 03:00] VITALS: BP 132/76
[2020-01-07] MEDS: morphine 2 MG/ML inj. syringe IV PRN (03:21)
[2020-01-07 06:10] LABS: BASOPHILS # (AUTO) 0.1 X10'3 (0-0.2); BASOPHILS % (AUTO) 1.2 % (0-1); EOSINOPHILS # (AUTO) 0.1 X10'3 (0-0.9); EOSINOPHILS % (AUTO) 0.7 % (0-6); HEMATOCRIT 40.5 % (42.0-52.0); HEMOGLOBIN 14.1 g/dl (14.0-17.9); LYMPHOCYTES # (AUTO) 2.6 X10'3 (1.1-4.8); LYMPHOCYTES % (AUTO) 33.5 % (21-51); MEAN CORPUSCULAR HEMOGLOBIN 31.5 PG (27.0-31.0); MEAN CORPUSCULAR HGB CONC 34.9 g/dL (33.0-36.5); MEAN CORPUSCULAR VOLUME 90.2 FL (78-98); MEAN PLATELET VOLUME 7.6 FL (7.4-10.4); MONOCYTES # (AUTO) 0.6 X10'3 (0-0.9); MONOCYTES % (AUTO) 8.2 % (2-12); NEUTROPHILS # (AUTO) 4.4 X10'3 (1.8-7.7); NEUTROPHILS % (AUTO) 56.4 % (42-75); PLATELET COUNT 266 X10'3 (140-440); RED BLOOD COUNT 4.49 X10'6 (4.70-6.10); RED CELL DISTRIBUTION WIDTH 13.4 % (11.5-14.5); WHITE BLOOD COUNT 7.8 X10'3 (4.5-11.0)
[2020-01-07] MEDS: potassium Cl 20mEq in NS 1,000 ML IV SCH ×3 (06:10→20:41)
[2020-01-07 06:17] LABS: ALANINE AMINOTRANSFERASE 22 U/L (12-78); ALBUMIN 3.3 G/DL (3.4-5.0); ALBUMIN/GLOBULIN RATIO 1.1 (1.1-1.5); ALKALINE PHOSPHATASE 31 IU/L (46-116); ANION GAP 7 (8-16); ASPARTATE AMINO TRANSFERASE 14 U/L (10-37); BILIRUBIN,TOTAL 3.6 MG/DL (0.1-1.0); BLOOD UREA NITROGEN 11 MG/DL (7-18); BUN/CREATININE RATIO 10.5 (5.4-32.0); CALCIUM 7.9 MG/DL (8.5-10.1); CHLORIDE 107 MMOL/L (99-107); CREATININE 1.05 MG/DL (0.60-1.10); GLUCOSE 94 MG/DL (70-104); MAGNESIUM 2.1 MG/DL (1.5-2.4); POTASSIUM 3.6 MMOL/L (3.5-5.1); SODIUM 139 MMOL/L (135-145); TOTAL CARBON DIOXIDE 25.1 MMOL/L (24-32); TOTAL PROTEIN 6.4 G/DL (6.4-8.2); eGFR 82 ML/MIN
--- NOTE | 2020-01-07 06:30 | NUR ---
Problems reprioritized. Patient report given, questions answered & plan of care reviewed with JONATHAN WHITFIELD.
--- NOTE | 2020-01-07 06:42 | NUR ---
Patient in room [facility]U 3015B. I have received report from ANA PEREZ RN and had the opportunity to ask questions and assume patient care.
[2020-01-07 07:00] VITALS: BP 130/78
[2020-01-07] MEDS: K and/or MAG REPLACEMENT MC SCH ×2 (08:00→20:00)
[2020-01-07] MEDS ORDERED: LORazepam 2 mg/ml vial IV ONE (09:45)
[2020-01-07 11:00] VITALS: BP 139/90
[2020-01-07 11:18] LABS: LIPASE 197 U/L (73-393)
[2020-01-07 11:19] LABS: ETHANOL < 0.010 GM/DL (0.0-0.010)
[2020-01-07] MEDS: pantoprazole 40 MG vial IV SCH ×2 (11:23→19:56)
[2020-01-07 12:04] LABS: HIV ANTIBODY 1&2 RAPID NON-REACTIVE (Neg)
[2020-01-07 15:00] VITALS: BP 120/79
[2020-01-07 18:00] VITALS: BP 141/91
--- NOTE | 2020-01-07 18:26 | NUR ---
Problems reprioritized. Patient report given, questions answered & plan of care reviewed with ROSEANN BURDICK.
--- NOTE | 2020-01-07 18:52 | NUR ---
Patient in room U 3015. I have received report from ROSEANN CASTILLO and had the opportunity to ask questions and assume patient care. Addendum: 01/07/20 at 1852 by Christy Lopez RN Amended: Links added.
[2020-01-07] MEDS ORDERED: enoxaparin 40mg/0.4ml syringe SQ SCH (20:00)
[2020-01-07 21:09] LABS: URINE AMPHETAMINE SCREEN NEGATIVE (Neg); URINE BARBITUATE SCREEN NEGATIVE (Neg); URINE BENZODIAZEPINES SCREEN NEGATIVE (Neg); URINE CANNABINOID SCREEN POSITIVE (Neg); URINE COCAINE SCREEN NEGATIVE (Neg); URINE METHADONE SCREEN NEGATIVE (Neg); URINE OPIATE SCREEN POSITIVE (Neg); URINE PHENCYCLIDINE SCREEN NEGATIVE (Neg)
[2020-01-07 22:00] VITALS: BP 122/77
[2020-01-08] VITALS (14 sets, daily range): BP systolic 120–165; BP diastolic 68–105
[2020-01-08] MEDS: morphine 2 MG/ML inj. syringe IV PRN ×2 (00:17→22:53)
--- NOTE | 2020-01-08 06:26 | NUR ---
Problems reprioritized. Patient report given, questions answered & plan of care reviewed with ROSEANN Peter.
--- NOTE | 2020-01-08 06:27 | NUR ---
Patient in room PCU 3015. I have received report from Marielle Olivas and had the opportunity to ask questions and assume patient care.
[2020-01-08 06:33] LABS: BASOPHILS # (AUTO) 0.1 X10'3 (0-0.2); BASOPHILS % (AUTO) 1.2 % (0-1); EOSINOPHILS # (AUTO) 0.2 X10'3 (0-0.9); EOSINOPHILS % (AUTO) 1.9 % (0-6); HEMATOCRIT 40.7 % (42.0-52.0); LYMPHOCYTES # (AUTO) 3.2 X10'3 (1.1-4.8); LYMPHOCYTES % (AUTO) 39.5 % (21-51); MEAN CORPUSCULAR HEMOGLOBIN 31.1 PG (27.0-31.0); MEAN CORPUSCULAR HGB CONC 34.5 g/dL (33.0-36.5); MEAN CORPUSCULAR VOLUME 90.3 FL (78-98); MEAN PLATELET VOLUME 7.9 FL (7.4-10.4); MONOCYTES # (AUTO) 0.6 X10'3 (0-0.9); MONOCYTES % (AUTO) 7.2 % (2-12); NEUTROPHILS # (AUTO) 4.1 X10'3 (1.8-7.7); NEUTROPHILS % (AUTO) 50.2 % (42-75); PLATELET COUNT 253 X10'3 (140-440); RED BLOOD COUNT 4.51 X10'6 (4.70-6.10); RED CELL DISTRIBUTION WIDTH 13.2 % (11.5-14.5); WHITE BLOOD COUNT 8.1 X10'3 (4.5-11.0)
[2020-01-08 06:37] LABS: ALANINE AMINOTRANSFERASE 19 U/L (12-78); ALBUMIN 3.1 G/DL (3.4-5.0); ALBUMIN/GLOBULIN RATIO 1.1 (1.1-1.5); ALKALINE PHOSPHATASE 30 IU/L (46-116); ANION GAP 7 (8-16); ASPARTATE AMINO TRANSFERASE 13 U/L (10-37); BILIRUBIN,TOTAL 3.7 MG/DL (0.1-1.0); BLOOD UREA NITROGEN 10 MG/DL (7-18); CALCIUM 8.3 MG/DL (8.5-10.1); CHLORIDE 105 MMOL/L (99-107); GLUCOSE 90 MG/DL (70-104); POTASSIUM 3.8 MMOL/L (3.5-5.1); SODIUM 139 MMOL/L (135-145); TOTAL CARBON DIOXIDE 26.9 MMOL/L (24-32); eGFR 87 ML/MIN
[2020-01-08] MEDS: pantoprazole 40 MG vial IV SCH ×2 (07:31→20:44)
[2020-01-08] MEDS: potassium Cl 20mEq in NS 1,000 ML IV SCH ×3 (07:33→22:14)
[2020-01-08] MEDS: K and/or MAG REPLACEMENT MC SCH ×2 (08:00→20:00)
[2020-01-08] MEDS ORDERED: fentaNYL/PF 50MCG/1 ML 2ML syringe ONE (12:17)
[2020-01-08] MEDS ORDERED: MIDAZolam 5mg/5ml vial ONE (12:17)
[2020-01-08] MEDS ORDERED: LIDOcaine Viscous 15ml cup ONE (12:17)
--- NOTE | 2020-01-08 12:28 | NUR ---
Patient off the unit to GI lab.
--- NOTE | 2020-01-08 15:39 | NUR ---
PAGER ID: [phone] MESSAGE: [id number] EGD completed. Gastritis and Esophagitis with Biopsies taken for H Pylori. Can he have a diet? davide [phone] Return call, order for Clear liquid diet and AAT to regular diet received. Patient will be DC in the next 24 hours most likely.
--- NOTE | 2020-01-08 18:20 | NUR ---
Patient in room PCU 3015. I have received report from Brittani WHITFIELD and had the opportunity to ask questions and assume patient care.
--- NOTE | 2020-01-08 18:24 | NUR ---
Problems reprioritized. Patient report given, questions answered & plan of care reviewed with Fany WHITFIELD.
[2020-01-09 02:06] VITALS: BP 122/86
--- NOTE | 2020-01-09 04:30 | NUR ---
technical illustrator informed nurse that patient just had a HR drop to 48 BPM from high 50's to 60. It last only for a second. Apparently patient had an episode like this during the day also.
[2020-01-09 06:16] LABS: BASOPHILS # (AUTO) 0.1 X10'3 (0-0.2); BASOPHILS % (AUTO) 0.7 % (0-1); EOSINOPHILS # (AUTO) 0.2 X10'3 (0-0.9); EOSINOPHILS % (AUTO) 2.3 % (0-6); HEMATOCRIT 40.9 % (42.0-52.0); HEMOGLOBIN 13.9 g/dl (14.0-17.9); LYMPHOCYTES # (AUTO) 2.7 X10'3 (1.1-4.8); LYMPHOCYTES % (AUTO) 28.5 % (21-51); MEAN CORPUSCULAR HEMOGLOBIN 30.7 PG (27.0-31.0); MEAN CORPUSCULAR VOLUME 90.2 FL (78-98); MONOCYTES # (AUTO) 0.7 X10'3 (0-0.9); MONOCYTES % (AUTO) 7.7 % (2-12); NEUTROPHILS # (AUTO) 5.7 X10'3 (1.8-7.7); NEUTROPHILS % (AUTO) 60.8 % (42-75); PLATELET COUNT 271 X10'3 (140-440); RED BLOOD COUNT 4.53 X10'6 (4.70-6.10); RED CELL DISTRIBUTION WIDTH 13.2 % (11.5-14.5); WHITE BLOOD COUNT 9.4 X10'3 (4.5-11.0)
--- NOTE | 2020-01-09 06:34 | NUR ---
Problems reprioritized. Patient report given, questions answered & plan of care reviewed with Andre RN and nursing home social worker .
[2020-01-09 06:42] VITALS: BP 118/83
--- NOTE | 2020-01-09 06:48 | NUR ---
Patient in room PCU 3015. I have received report from Fany WHITFIELD and had the opportunity to ask questions and assume patient care.
[2020-01-09 06:58] LABS: ALANINE AMINOTRANSFERASE 21 U/L (12-78); ALBUMIN 3.3 G/DL (3.4-5.0); ALKALINE PHOSPHATASE 33 IU/L (46-116); ANION GAP 10 (8-16); ASPARTATE AMINO TRANSFERASE 16 U/L (10-37); BILIRUBIN,TOTAL 3.2 MG/DL (0.1-1.0); BLOOD UREA NITROGEN 7 MG/DL (7-18); BUN/CREATININE RATIO 7.1 (5.4-32.0); CALCIUM 8.4 MG/DL (8.5-10.1); CHLORIDE 106 MMOL/L (99-107); CREATININE 0.98 MG/DL (0.60-1.10); GLUCOSE 88 MG/DL (70-104); MAGNESIUM 1.9 MG/DL (1.5-2.4); SODIUM 141 MMOL/L (135-145); TOTAL CARBON DIOXIDE 25.2 MMOL/L (24-32); TOTAL PROTEIN 6.5 G/DL (6.4-8.2); eGFR 89 ML/MIN
[2020-01-09] MEDS: pantoprazole 40 MG vial IV SCH ×2 (07:25→20:14)
[2020-01-09] MEDS: K and/or MAG REPLACEMENT MC SCH ×2 (08:00→20:00)
[2020-01-09] MEDS: morphine 2 MG/ML inj. syringe IV PRN (08:09)
[2020-01-09] MEDS: potassium Cl 20mEq in NS 1,000 ML IV SCH ×2 (08:09→22:10)
[2020-01-09] MEDS ORDERED: LORazepam 2 mg/ml vial IV PRN (10:25)
[2020-01-09] MEDS ORDERED: thiamine inj. 100 MG in normal saline 100ml IV soln 100 ML IV ONE (10:25)
[2020-01-09] MEDS ORDERED: mag hydrox/Alum hydrox/simeth 30ml oral suspension PO PRN (10:25)
[2020-01-09] MEDS ORDERED: dicyclomine 10 MG capsule PO PRN (10:25)
[2020-01-09 11:00] VITALS: BP 156/106
--- NOTE | 2020-01-09 13:37 | NUR ---
Report received from Andre WHITFIELD
--- NOTE | 2020-01-09 14:00 | NUR ---
Problems reprioritized. Patient report given, questions answered & plan of care reviewed with Hermila WHITFIELD.
--- NOTE | 2020-01-09 15:05 | NUR ---
I agree with Andre RN physical assessment, except patient no longer on Tele
[2020-01-09 18:00] VITALS: BP 150/94
--- NOTE | 2020-01-09 18:24 | NUR ---
Problems reprioritized. Patient report given, questions answered & plan of care reviewed with ROSEANN Cohen.
[2020-01-09 22:00] VITALS: BP 124/80
[2020-01-10 06:21] LABS: BASOPHILS # (AUTO) 0.1 X10'3 (0-0.2); BASOPHILS % (AUTO) 1.2 % (0-1); EOSINOPHILS # (AUTO) 0.3 X10'3 (0-0.9); EOSINOPHILS % (AUTO) 2.9 % (0-6); HEMATOCRIT 40.4 % (42.0-52.0); LYMPHOCYTES # (AUTO) 2.1 X10'3 (1.1-4.8); LYMPHOCYTES % (AUTO) 20.6 % (21-51); MEAN CORPUSCULAR HEMOGLOBIN 30.9 PG (27.0-31.0); MEAN CORPUSCULAR HGB CONC 34.6 g/dL (33.0-36.5); MEAN CORPUSCULAR VOLUME 89.3 FL (78-98); MEAN PLATELET VOLUME 7.7 FL (7.4-10.4); MONOCYTES # (AUTO) 0.8 X10'3 (0-0.9); MONOCYTES % (AUTO) 7.8 % (2-12); NEUTROPHILS # (AUTO) 6.7 X10'3 (1.8-7.7); NEUTROPHILS % (AUTO) 67.5 % (42-75); PLATELET COUNT 269 X10'3 (140-440); RED BLOOD COUNT 4.52 X10'6 (4.70-6.10); RED CELL DISTRIBUTION WIDTH 13.3 % (11.5-14.5); WHITE BLOOD COUNT 9.9 X10'3 (4.5-11.0)
[2020-01-10 06:43] LABS: ALANINE AMINOTRANSFERASE 19 U/L (12-78); ALBUMIN 3.4 G/DL (3.4-5.0); ALKALINE PHOSPHATASE 35 IU/L (46-116); AMYLASE 30 U/L (25-115); ANION GAP 11 (8-16); ASPARTATE AMINO TRANSFERASE 9 U/L (10-37); BLOOD UREA NITROGEN 8 MG/DL (7-18); BUN/CREATININE RATIO 7.9 (5.4-32.0); CALCIUM 8.6 MG/DL (8.5-10.1); CHLORIDE 106 MMOL/L (99-107); CREATININE 1.01 MG/DL (0.60-1.10); GLUCOSE 104 MG/DL (70-104); LIPASE 146 U/L (73-393); MAGNESIUM 1.8 MG/DL (1.5-2.4); POTASSIUM 3.9 MMOL/L (3.5-5.1); SODIUM 141 MMOL/L (135-145); TOTAL CARBON DIOXIDE 23.9 MMOL/L (24-32); TOTAL PROTEIN 6.7 G/DL (6.4-8.2); eGFR 86 ML/MIN
[2020-01-10] MEDS: pantoprazole 40 MG vial IV SCH (07:42)
[2020-01-10] MEDS: potassium Cl 20mEq in NS 1,000 ML IV SCH (07:44)
[2020-01-10] MEDS: K and/or MAG REPLACEMENT MC SCH (07:48)
[2020-01-10 07:53] VITALS: BP 116/63
[2020-01-10] MEDS ORDERED: multivitamins, therapeutics tablet PO SCH (08:00)
[2020-01-10] MEDS ORDERED: thiamine 100mg tablet PO SCH (08:00)
[2020-01-10] MEDS ORDERED: folic acid 1mg tablet PO SCH (08:00)
[2020-01-10] MEDS ORDERED: PROM25TA14 PO (08:35)
[2020-01-10 09:30] VITALS: BP 132/86
--- NOTE | 2020-01-10 09:51 | NUR ---
Patient stable and appropriate for discharge home with family. IV removed, all belongings taken from room. [facility] [place], [place]. Discharge instructions and education given and reviewed with patient, all questions answered.
[2020-01-10 16:55] LABS: HBSAG SCREEN Negative (Negative); HEP A AB, IGM Negative (Negative); HEPATITIS C ANTIBODY <0.1 s/co ratio (0.0-0.9)
[2020-01-11] MEDS ORDERED: LORazepam 1 MG tablet PO PRN (10:25)
[2020-01-11] MEDS ORDERED: LORazepam 2 mg/ml vial IV PRN (10:25)
[2020-01-13] MEDS ORDERED: LORazepam 1 MG tablet PO PRN (10:25)
[2020-01-13] MEDS ORDERED: LORazepam 2 mg/ml vial IV PRN (10:25)
== END 2020-01-10 09:50 | disposition home or self-care (01) | DRG 254 ==
LOC: ER 13:38 → ED HOLD 20:07 → PCU 3S 22:30 → ORTHO 4S 01-09 13:50
PROVIDERS: ADMIT Family Medicine; ATTEND Family Medicine
PROC: BW211ZZ Computerized Tomography (CT Scan) of Abdomen and Pelvis using Low Osmolar Contrast (ICD-10-PCS; principal; 2020-01-06)
PROC: 0DB68ZX Excision of Stomach, Via Natural or Artificial Opening Endoscopic, Diagnostic (ICD-10-PCS; 2020-01-08)
DX: K31.84 Gastroparesis (principal); K52.9 Noninfective gastroenteritis and colitis, unspecified; K22.70 Barrett's esophagus without dysplasia; G89.29 Other chronic pain; E87.6 Hypokalemia; F10.10 Alcohol abuse, uncomplicated; K44.9 Diaphragmatic hernia without obstruction or gangrene; K21.00 Gastro-esophageal reflux disease with esophagitis, without bleeding; K92.0 Hematemesis; K29.70 Gastritis, unspecified, without bleeding; K31.89 Other diseases of stomach and duodenum; R00.0 Tachycardia, unspecified; F12.90 Cannabis use, unspecified, uncomplicated; Z80.0 Family history of malignant neoplasm of digestive organs; Z90.49 Acquired absence of other specified parts of digestive tract; Z88.8 Allergy status to other drugs, medicaments and biological substances; Z79.899 Other long term (current) drug therapy
CPT/HCPCS: 36415; 43239; 74177; 74181; 80053; 80305; 80320; 81003; 82150; 82248; 83690; 83735; 84443; 85025; 86703; 86705; 86706; 86709; 86803; 87081; 87340; 96374; 96375; 99152; 99153; 99285; A4620; C9113; G0378; J0780; J1200; J1650; J2060; J2250; J2270; J2405; J3010; J3411; J3480; J3490; J7030; J7040; Q9967

== ENCOUNTER 2020-02-22 18:30 | Emergency (ER) | payer MEDICAID ==
[~2020-02-22] VITALS: Ht 175.3 cm; Wt 110.7 kg
[~2020-02-22 18:30] MED LIST changes: -ONDA4TAB6 PO; +PROM25TA14 PO
[2020-02-22 19:23] LABS: BASOPHILS # (AUTO) 0.1 X10'3 (0-0.2); BASOPHILS % (AUTO) 0.3 % (0-1); EOSINOPHILS % (AUTO) 0 % (0-6); HEMATOCRIT 55.2 % (42.0-52.0); LYMPHOCYTES # (AUTO) 1.8 X10'3 (1.1-4.8); LYMPHOCYTES % (AUTO) 9.9 % (21-51); MEAN CORPUSCULAR HEMOGLOBIN 30.5 PG (27.0-31.0); MEAN CORPUSCULAR HGB CONC 35.1 g/dL (33.0-36.5); MEAN PLATELET VOLUME 8.2 FL (7.4-10.4); MONOCYTES # (AUTO) 1.9 X10'3 (0-0.9); MONOCYTES % (AUTO) 10.5 % (2-12); NEUTROPHILS # (AUTO) 14.3 X10'3 (1.8-7.7); NEUTROPHILS % (AUTO) 79.3 % (42-75); PLATELET COUNT 371 X10'3 (140-440); RED BLOOD COUNT 6.34 X10'6 (4.70-6.10); RED CELL DISTRIBUTION WIDTH 13.4 % (11.5-14.5)
[2020-02-22 19:32] LABS: CLARITY,URINE CLEAR (Clear); COLOR,URINE YELLOW (Yellow); GLUCOSE, URINE NEGATIVE (Neg); KETONES,URINE TRACE mg/dl (Neg); LEUKOCYTE ESTERASE ,URINE NEGATIVE (Neg); NITRITES, URINE NEGATIVE (Neg); OCCULT BLOOD,URINE TRACE-INTACT (Neg); PROTEIN,URINE 100 mg/dl (Neg)
[2020-02-22 19:33] LABS: UA COLLECTION TYPE NON-SPECIFIED
[2020-02-22 19:35] LABS: HEMOGLOBIN 19.4 g/dl (14.0-17.9)
[2020-02-22 19:40] LABS: ALANINE AMINOTRANSFERASE 35 U/L (12-78); ALBUMIN 5.6 G/DL (3.4-5.0); ALBUMIN/GLOBULIN RATIO 1.1 (1.1-1.5); ALKALINE PHOSPHATASE 62 IU/L (46-116); ANION GAP 19 (8-16); ASPARTATE AMINO TRANSFERASE 34 U/L (10-37); BILIRUBIN,TOTAL 2.3 MG/DL (0.1-1.0); BLOOD UREA NITROGEN 32 MG/DL (7-18); BUN/CREATININE RATIO 10.4 (5.4-32.0); CALCIUM 10.2 MG/DL (8.5-10.1); CHLORIDE 90 MMOL/L (99-107); CREATININE 3.08 MG/DL (0.60-1.10); GLUCOSE 155 MG/DL (70-104); LIPASE 60 U/L (73-393); POTASSIUM 3.4 MMOL/L (3.5-5.1); SODIUM 131 MMOL/L (135-145); TOTAL CARBON DIOXIDE 21.7 MMOL/L (24-32); TOTAL PROTEIN 10.8 G/DL (6.4-8.2); eGFR 24 ML/MIN
[2020-02-22 19:45] LABS: BACTERIA,URINE 1+ /HPF (Neg); HYALINE CASTS 0-3 /LPF (NEGATIVE); RBC,URINE 0-2 /HPF (0-2); SQUAMOUS EPITHELIAL CELL,UR MODERATE /LPF (FEW); WBC,URINE 0-4 /HPF (0-4)
[2020-02-22] MEDS ORDERED: pantoprazole 40 MG vial IV ONE (19:45)
[2020-02-22] MEDS ORDERED: ondansetron/PF 4mg/2ml inj IV ONE (19:45)
[2020-02-22] MEDS ORDERED: normal saline 1000ML IV soln IVB ONE (19:45)
[2020-02-22] MEDS ORDERED: morphine 4 MG/ML inj SYRINge IV ONE (19:45)
[2020-02-22] MEDS ORDERED: iohexol 300mg/ml 100ml inj. ONE (19:46)
[2020-02-22 21:32] VITALS: BP 128/112
== END 2020-02-22 21:31 | disposition home or self-care (01) ==
LOC: ER 18:30
DX: R10.84 Generalized abdominal pain (principal); E80.6 Other disorders of bilirubin metabolism; K21.9 Gastro-esophageal reflux disease without esophagitis; Z90.89 Acquired absence of other organs; Z72.89 Other problems related to lifestyle; Z88.8 Allergy status to other drugs, medicaments and biological substances; Z79.899 Other long term (current) drug therapy
CPT/HCPCS: 36415; 74177; 80053; 81001; 83690; 85025; 96361; 96374; 96375; 99285; C9113; J2270; J2405; J7030; Q9967; 99284

== ENCOUNTER 2020-03-21 07:02 | Emergency (ER) | payer MEDICAID ==
[~2020-03-21] VITALS: Ht 175.3 cm; Wt 108.0 kg
[2020-03-21 07:43] LABS: CLARITY,URINE SLIGHTLY CLOUDY (Clear); COLOR,URINE YELLOW (Yellow); GLUCOSE, URINE NEGATIVE (Neg); KETONES,URINE 40 mg/dl (Neg); LEUKOCYTE ESTERASE ,URINE NEGATIVE (Neg); NITRITES, URINE NEGATIVE (Neg); OCCULT BLOOD,URINE NEGATIVE (Neg); PH,URINE 5.5 (4.8-8.0); PROTEIN,URINE 30 mg/dl (Neg); UROBILINOGEN,URINE 0.2 E.U/dL (0.2-1.0)
[2020-03-21 07:45] LABS: UA COLLECTION TYPE CLN CATCH MIDSTREAM
[2020-03-21 07:52] LABS: MUCUS STRANDS MANY /LPF (Neg); SQUAMOUS EPITHELIAL CELL,UR FEW /LPF (FEW)
[2020-03-21 07:53] LABS: TRANSITIONAL EPI CELLS,URINE MANY /HPF
[2020-03-21 07:54] LABS: BACTERIA,URINE 1+ /HPF (Neg); RBC,URINE 0-2 /HPF (0-2); WBC,URINE 0-4 /HPF (0-4)
[2020-03-21] MEDS ORDERED: normal saline 1000ML IV soln IVB ONE (08:25)
[2020-03-21] MEDS ORDERED: morphine 4 MG/ML inj SYRINge IV ONE (08:25)
[2020-03-21] MEDS ORDERED: ondansetron/PF 4mg/2ml inj IV ONE (08:25)
[2020-03-21] MEDS ORDERED: diazepam inj 5 MG/ML inj. IV ONE (08:25)
[2020-03-21] MEDS ORDERED: pantoprazole 40 MG vial IV ONE (08:25)
[2020-03-21 09:17] LABS: BASOPHILS # (AUTO) 0.1 X10'3 (0-0.2); BASOPHILS % (AUTO) 1.1 % (0-1); EOSINOPHILS % (AUTO) 0 % (0-6); HEMATOCRIT 50.9 % (42.0-52.0); HEMOGLOBIN 17.5 g/dl (14.0-17.9); LYMPHOCYTES # (AUTO) 0.9 X10'3 (1.1-4.8); MEAN CORPUSCULAR HEMOGLOBIN 30.2 PG (27.0-31.0); MEAN CORPUSCULAR HGB CONC 34.4 g/dL (33.0-36.5); MEAN CORPUSCULAR VOLUME 87.7 FL (78-98); MEAN PLATELET VOLUME 7.7 FL (7.4-10.4); MONOCYTES # (AUTO) 0.7 X10'3 (0-0.9); MONOCYTES % (AUTO) 9.1 % (2-12); NEUTROPHILS # (AUTO) 5.5 X10'3 (1.8-7.7); NEUTROPHILS % (AUTO) 76.8 % (42-75); PLATELET COUNT 354 X10'3 (140-440); RED BLOOD COUNT 5.81 X10'6 (4.70-6.10); RED CELL DISTRIBUTION WIDTH 13.2 % (11.5-14.5); WHITE BLOOD COUNT 7.2 X10'3 (4.5-11.0)
[2020-03-21 09:38] LABS: ALANINE AMINOTRANSFERASE 33 U/L (12-78); ALBUMIN 4.6 G/DL (3.4-5.0); ALKALINE PHOSPHATASE 48 IU/L (46-116); AMYLASE 31 U/L (25-115); ANION GAP 11 (8-16); ASPARTATE AMINO TRANSFERASE 12 U/L (10-37); BILIRUBIN,TOTAL 1.3 MG/DL (0.1-1.0); BLOOD UREA NITROGEN 20 MG/DL (7-18); BUN/CREATININE RATIO 16.1 (5.4-32.0); CALCIUM 11.6 MG/DL (8.5-10.1); CHLORIDE 101 MMOL/L (99-107); CREATININE 1.24 MG/DL (0.60-1.10); GLUCOSE 151 MG/DL (70-104); LIPASE 113 U/L (73-393); POTASSIUM 3.5 MMOL/L (3.5-5.1); SODIUM 139 MMOL/L (135-145); TOTAL CARBON DIOXIDE 27.4 MMOL/L (24-32); TOTAL PROTEIN 9.1 G/DL (6.4-8.2); eGFR 68 ML/MIN
[2020-03-21] MEDS ORDERED: proCHLORperazine 10 MG/2 ml inj IV ONE (11:10)
[2020-03-21 12:29] VITALS: BP 140/95
[2020-03-21] MEDS ORDERED: ONDA8TAB13 PO (12:46)
== END 2020-03-21 12:42 | disposition home or self-care (01) ==
LOC: ER 07:03
DX: R11.2 Nausea with vomiting, unspecified (principal); R10.11 Right upper quadrant pain; R10.12 Left upper quadrant pain; R10.13 Epigastric pain; K21.9 Gastro-esophageal reflux disease without esophagitis; F12.90 Cannabis use, unspecified, uncomplicated; Z90.49 Acquired absence of other specified parts of digestive tract; Z72.89 Other problems related to lifestyle; Z88.8 Allergy status to other drugs, medicaments and biological substances; Z79.899 Other long term (current) drug therapy
CPT/HCPCS: 36415; 80053; 81001; 82150; 83690; 85025; 93005; 96361; 96374; 96375; 99285; C9113; J0780; J2270; J2405; J3360; J7030

== ENCOUNTER 2020-04-18 09:42 | Emergency (ER) | payer MEDICAID ==
[~2020-04-18] VITALS: Ht 177.8 cm; Wt 150.0 kg
[~2020-04-18 09:42] MED LIST changes: +ONDA8TAB13 PO
[2020-04-18] MEDS ORDERED: ketorolac tromethamine 15mg/ml inj. IV ONE (10:15)
[2020-04-18] MEDS ORDERED: proCHLORperazine 10 MG/2 ml inj IV ONE (10:15)
[2020-04-18] MEDS ORDERED: normal saline 1000ML IV soln IVB ONE (10:15)
[2020-04-18 11:17] LABS: BASOPHILS % (AUTO) 0.3 % (0-1); EOSINOPHILS % (AUTO) 0.1 % (0-6); HEMATOCRIT 46.6 % (42.0-52.0); HEMOGLOBIN 15.9 g/dl (14.0-17.9); LYMPHOCYTES # (AUTO) 0.9 X10'3 (1.1-4.8); LYMPHOCYTES % (AUTO) 6.5 % (21-51); MEAN CORPUSCULAR HEMOGLOBIN 30.2 PG (27.0-31.0); MEAN CORPUSCULAR HGB CONC 34.1 g/dL (33.0-36.5); MEAN CORPUSCULAR VOLUME 88.7 FL (78-98); MEAN PLATELET VOLUME 7.7 FL (7.4-10.4); MONOCYTES # (AUTO) 0.5 X10'3 (0-0.9); MONOCYTES % (AUTO) 4.1 % (2-12); NEUTROPHILS # (AUTO) 11.6 X10'3 (1.8-7.7); PLATELET COUNT 294 X10'3 (140-440); RED BLOOD COUNT 5.25 X10'6 (4.70-6.10); RED CELL DISTRIBUTION WIDTH 13.4 % (11.5-14.5)
[2020-04-18 11:30] LABS: ALANINE AMINOTRANSFERASE 27 U/L (12-78); ALBUMIN/GLOBULIN RATIO 1.1 (1.1-1.5); ALKALINE PHOSPHATASE 48 IU/L (46-116); ANION GAP 15 (8-16); ASPARTATE AMINO TRANSFERASE 14 U/L (10-37); BILIRUBIN,TOTAL 1.2 MG/DL (0.1-1.0); BLOOD UREA NITROGEN 12 MG/DL (7-18); BUN/CREATININE RATIO 10.4 (5.4-32.0); CALCIUM 8.8 MG/DL (8.5-10.1); CHLORIDE 106 MMOL/L (99-107); CREATININE 1.15 MG/DL (0.60-1.10); GLUCOSE 131 MG/DL (70-104); LIPASE < 50 U/L (73-393); SODIUM 143 MMOL/L (135-145); TOTAL CARBON DIOXIDE 21.6 MMOL/L (24-32); TOTAL PROTEIN 7.6 G/DL (6.4-8.2); eGFR 74 ML/MIN
[2020-04-18] MEDS ORDERED: LORazepam 2 mg/ml vial IV ONE (11:55)
[2020-04-18] MEDS ORDERED: morphine 4 MG/ML inj SYRINge IV ONE (11:55)
[2020-04-18] MEDS ORDERED: ondansetron/PF 4mg/2ml inj IV ONE (11:55)
--- NOTE | 2020-04-18 12:30 | NUR ---
WHEN I WALK INTO THE ROOM AND PATIENT'S EYES ARE VLOSED HE APPEARS TO BE RESTING. WHEN HE OPENS HIS EYES AND SEES ME, HE STARTS GRUNTING AND TENSING HIS MUSCLES IF HE WERE HAVING A BOWEL MOVEMENT. HE DOES THAT UNTIL I LEAVE. AFTER I LEAVE THE ROOM HE APPEARS CALM AND RESTFUL.PA AWARE
[2020-04-18] MEDS ORDERED: normal saline 1000ml 1,000 ML IV ONE (12:35)
[2020-04-18 12:43] LABS: CLARITY,URINE CLEAR (Clear); COLOR,URINE YELLOW (Yellow); GLUCOSE, URINE NEGATIVE (Neg); KETONES,URINE 40 mg/dl (Neg); LEUKOCYTE ESTERASE ,URINE NEGATIVE (Neg); NITRITES, URINE NEGATIVE (Neg); OCCULT BLOOD,URINE NEGATIVE (Neg); PROTEIN,URINE TRACE mg/dl (Neg); UROBILINOGEN,URINE 0.2 E.U/dL (0.2-1.0)
[2020-04-18 12:48] LABS: UA COLLECTION TYPE CLN CATCH MIDSTREAM
[2020-04-18 12:49] LABS: BACTERIA,URINE NONE SEEN /HPF (Neg); RBC,URINE NONE SEEN /HPF (0-2); WBC,URINE 0-4 /HPF (0-4)
[2020-04-18 12:50] LABS: MUCUS STRANDS MANY /LPF (Neg); SQUAMOUS EPITHELIAL CELL,UR FEW /LPF (FEW)
[2020-04-18 12:51] LABS: CELLULAR CAST 0-4 /LPF (NEGATIVE)
[2020-04-18] MEDS ORDERED: ONDA4TAB6 PO (14:13)
[2020-04-18 14:18] VITALS: BP 132/75
== END 2020-04-18 14:20 | disposition home or self-care (01) ==
LOC: ER 09:42
DX: R10.84 Generalized abdominal pain (principal); R11.2 Nausea with vomiting, unspecified; K21.9 Gastro-esophageal reflux disease without esophagitis; F12.90 Cannabis use, unspecified, uncomplicated; Z90.49 Acquired absence of other specified parts of digestive tract; Z72.89 Other problems related to lifestyle; Z88.8 Allergy status to other drugs, medicaments and biological substances; Z79.899 Other long term (current) drug therapy
CPT/HCPCS: 36415; 80053; 81001; 83690; 85025; 96361; 96374; 96375; 99284; J0780; J1885; J2060; J2270; J2405; J7030

== ENCOUNTER 2020-04-21 15:04 | Emergency (ER) | payer MEDICAID ==
[~2020-04-21] VITALS: Ht 175.3 cm; Wt 108.6 kg
[~2020-04-21 15:04] MED LIST changes: +ONDA4TAB6 PO
[2020-04-21] MEDS ORDERED: normal saline 1000ML IV soln IVB ONE ×2 (15:40→16:20)
[2020-04-21] MEDS ORDERED: ondansetron/PF 4mg/2ml inj IV ONE (15:40)
[2020-04-21 15:58] LABS: BASOPHILS # (AUTO) 0.1 X10'3 (0-0.2); BASOPHILS % (AUTO) 0.9 % (0-1); EOSINOPHILS % (AUTO) 0 % (0-6); HEMOGLOBIN 17.4 g/dl (14.0-17.9); LYMPHOCYTES # (AUTO) 1.9 X10'3 (1.1-4.8); LYMPHOCYTES % (AUTO) 14.5 % (21-51); MEAN CORPUSCULAR HGB CONC 34.8 g/dL (33.0-36.5); MEAN CORPUSCULAR VOLUME 86.1 FL (78-98); MEAN PLATELET VOLUME 7.8 FL (7.4-10.4); MONOCYTES # (AUTO) 1.2 X10'3 (0-0.9); NEUTROPHILS # (AUTO) 9.8 X10'3 (1.8-7.7); NEUTROPHILS % (AUTO) 75.6 % (42-75); PLATELET COUNT 341 X10'3 (140-440); RED CELL DISTRIBUTION WIDTH 13.3 % (11.5-14.5); WHITE BLOOD COUNT 12.9 X10'3 (4.5-11.0)
[2020-04-21 16:05] LABS: CLARITY,URINE CLEAR (Clear); COLOR,URINE YELLOW (Yellow); GLUCOSE, URINE NEGATIVE (Neg); KETONES,URINE 15 mg/dl (Neg); LEUKOCYTE ESTERASE ,URINE NEGATIVE (Neg); NITRITES, URINE NEGATIVE (Neg); OCCULT BLOOD,URINE NEGATIVE (Neg); PROTEIN,URINE 100 mg/dl (Neg)
[2020-04-21 16:11] LABS: UA COLLECTION TYPE CLN CATCH MIDSTREAM
[2020-04-21 16:12] LABS: BACTERIA,URINE FEW /HPF (Neg); MUCUS STRANDS MANY /LPF (Neg); RBC,URINE NONE SEEN /HPF (0-2); SQUAMOUS EPITHELIAL CELL,UR FEW /LPF (FEW); WBC,URINE 0-4 /HPF (0-4)
[2020-04-21 16:15] LABS: ALANINE AMINOTRANSFERASE 29 U/L (12-78); ALBUMIN/GLOBULIN RATIO 1.1 (1.1-1.5); ALKALINE PHOSPHATASE 51 IU/L (46-116); ANION GAP 13 (8-16); ASPARTATE AMINO TRANSFERASE 15 U/L (10-37); BILIRUBIN,TOTAL 2.4 MG/DL (0.1-1.0); BLOOD UREA NITROGEN 19 MG/DL (7-18); BUN/CREATININE RATIO 12.9 (5.4-32.0); CALCIUM 10.4 MG/DL (8.5-10.1); CHLORIDE 97 MMOL/L (99-107); CREATININE 1.47 MG/DL (0.60-1.10); GLUCOSE 136 MG/DL (70-104); LIPASE 52 U/L (73-393); POTASSIUM 3.2 MMOL/L (3.5-5.1); SODIUM 137 MMOL/L (135-145); TOTAL CARBON DIOXIDE 26.8 MMOL/L (24-32); TOTAL PROTEIN 9.5 G/DL (6.4-8.2); eGFR 56 ML/MIN
[2020-04-21] MEDS ORDERED: proCHLORperazine 10 MG/2 ml inj IV PRN (17:00)
[2020-04-21] MEDS ORDERED: diphenhydrAMINE 50 mg/ml inj IV ONE (17:00)
[2020-04-21] MEDS: potassium Cl 10 mEq/100mL bag IV SCH ×2 (17:12→18:16)
--- NOTE | 2020-04-21 19:24 | NUR ---
lab has drawn repeat CMP
[2020-04-21 20:02] LABS: ALANINE AMINOTRANSFERASE 24 U/L (12-78); ALBUMIN 3.7 G/DL (3.4-5.0); ALBUMIN/GLOBULIN RATIO 1.1 (1.1-1.5); ALKALINE PHOSPHATASE 36 IU/L (46-116); ANION GAP 6 (8-16); ASPARTATE AMINO TRANSFERASE 11 U/L (10-37); BILIRUBIN,TOTAL 1.9 MG/DL (0.1-1.0); BLOOD UREA NITROGEN 17 MG/DL (7-18); BUN/CREATININE RATIO 12.7 (5.4-32.0); CALCIUM 8.1 MG/DL (8.5-10.1); CHLORIDE 103 MMOL/L (99-107); CREATININE 1.34 MG/DL (0.60-1.10); GLUCOSE 116 MG/DL (70-104); POTASSIUM 3.3 MMOL/L (3.5-5.1); SODIUM 138 MMOL/L (135-145); TOTAL PROTEIN 7.1 G/DL (6.4-8.2); eGFR 62 ML/MIN
[2020-04-21] MEDS ORDERED: PROC-8 PO (20:25)
[2020-04-21 20:41] VITALS: BP 138/81
== END 2020-04-21 20:43 | disposition home or self-care (01) ==
LOC: ER 15:05
DX: N17.9 Acute kidney failure, unspecified (principal); E83.52 Hypercalcemia; E87.6 Hypokalemia; K21.9 Gastro-esophageal reflux disease without esophagitis; Z90.49 Acquired absence of other specified parts of digestive tract; F12.90 Cannabis use, unspecified, uncomplicated; Z72.89 Other problems related to lifestyle; Z88.8 Allergy status to other drugs, medicaments and biological substances; Z79.899 Other long term (current) drug therapy
CPT/HCPCS: 36415; 80053; 81001; 83690; 85025; 96361; 96365; 96366; 96375; 99285; J0780; J1200; J2405; J3480; J7030

== ENCOUNTER 2020-06-10 11:45 | Emergency (ER) | payer MEDICAID ==
[~2020-06-10] VITALS: Ht 175.3 cm; Wt 108.9 kg
[~2020-06-10 11:45] MED LIST changes: +PROC-8 PO
[2020-06-10 12:19] LABS: CLARITY,URINE SLIGHTLY CLOUDY (Clear); COLOR,URINE YELLOW (Yellow); GLUCOSE, URINE NEGATIVE (Neg); KETONES,URINE TRACE mg/dl (Neg); LEUKOCYTE ESTERASE ,URINE NEGATIVE (Neg); NITRITES, URINE NEGATIVE (Neg); OCCULT BLOOD,URINE NEGATIVE (Neg); PROTEIN,URINE TRACE mg/dl (Neg)
[2020-06-10 12:26] LABS: UA COLLECTION TYPE CLN CATCH MIDSTREAM
[2020-06-10 12:27] LABS: MUCUS STRANDS MANY /LPF (Neg); SQUAMOUS EPITHELIAL CELL,UR FEW /LPF (FEW)
[2020-06-10 12:29] LABS: BACTERIA,URINE FEW /HPF (Neg); RBC,URINE 0-2 /HPF (0-2); WBC,URINE 0-4 /HPF (0-4)
[2020-06-10 12:32] LABS: BASOPHILS # (AUTO) 0.1 X10'3 (0-0.2); BASOPHILS % (AUTO) 0.7 % (0-1); EOSINOPHILS % (AUTO) 0.1 % (0-6); HEMOGLOBIN 17.2 g/dl (14.0-17.9); LYMPHOCYTES % (AUTO) 16.6 % (21-51); MEAN CORPUSCULAR HEMOGLOBIN 29.8 PG (27.0-31.0); MEAN CORPUSCULAR HGB CONC 34.4 g/dL (33.0-36.5); MEAN CORPUSCULAR VOLUME 86.6 FL (78-98); MEAN PLATELET VOLUME 7.9 FL (7.4-10.4); MONOCYTES # (AUTO) 1.3 X10'3 (0-0.9); MONOCYTES % (AUTO) 10.8 % (2-12); NEUTROPHILS # (AUTO) 8.8 X10'3 (1.8-7.7); NEUTROPHILS % (AUTO) 71.8 % (42-75); PLATELET COUNT 348 X10'3 (140-440); RED BLOOD COUNT 5.78 X10'6 (4.70-6.10); WHITE BLOOD COUNT 12.3 X10'3 (4.5-11.0)
[2020-06-10 12:39] LABS: ALANINE AMINOTRANSFERASE 32 U/L (12-78); ALBUMIN 4.6 G/DL (3.4-5.0); ALBUMIN/GLOBULIN RATIO 1.1 (1.1-1.5); ALKALINE PHOSPHATASE 51 IU/L (46-116); ANION GAP 14 (8-16); ASPARTATE AMINO TRANSFERASE 22 U/L (10-37); BILIRUBIN,TOTAL 2.8 MG/DL (0.1-1.0); BLOOD UREA NITROGEN 23 MG/DL (7-18); CALCIUM 9.3 MG/DL (8.5-10.1); CHLORIDE 94 MMOL/L (99-107); CREATININE 1.35 MG/DL (0.60-1.10); GLUCOSE 122 MG/DL (70-104); LIPASE 327 U/L (73-393); SODIUM 133 MMOL/L (135-145); TOTAL CARBON DIOXIDE 25.1 MMOL/L (24-32); TOTAL PROTEIN 8.8 G/DL (6.4-8.2); eGFR 62 ML/MIN
[2020-06-10] MEDS ORDERED: normal saline 1000ML IV soln IVB ONE ×2 (14:20→17:00)
[2020-06-10] MEDS ORDERED: potassium Cl 20 mEq SR tablet PO STA (14:23)
[2020-06-10] MEDS ORDERED: potassium Cl 10 mEq/100mL bag IV ONE (14:25)
[2020-06-10] MEDS ORDERED: proCHLORperazine 10 MG/2 ml inj IV ONE (15:10)
[2020-06-10] MEDS ORDERED: dicyclomine 10 MG capsule PO ONE (15:10)
--- NOTE | 2020-06-10 15:55 | NUR ---
Pt underwent what appeared as seizure-like behavior, but was not as he remained cognitive enough to answer a question. This was followed by intermittent spasms and rigidity. JONI Amador called in to assess. Order for Ativan received.
[2020-06-10] MEDS ORDERED: LORazepam 2 mg/ml vial IV ONE (16:00)
[2020-06-10] MEDS ORDERED: morphine 4 MG/ML inj SYRINge IV ONE (17:00)
[2020-06-10] MEDS ORDERED: POTA10TA19 PO (18:08)
[2020-06-10] MEDS ORDERED: DICY10CA88 PO (18:08)
[2020-06-10] MEDS ORDERED: ONDA4TAB6 PO (18:08)
[2020-06-10 18:15] VITALS: BP 129/76
== END 2020-06-10 18:26 | disposition home or self-care (01) ==
LOC: ER 11:45
DX: E87.6 Hypokalemia (principal); R10.84 Generalized abdominal pain; R11.2 Nausea with vomiting, unspecified; K21.9 Gastro-esophageal reflux disease without esophagitis; F12.90 Cannabis use, unspecified, uncomplicated; Z72.89 Other problems related to lifestyle; Z90.49 Acquired absence of other specified parts of digestive tract; Z88.8 Allergy status to other drugs, medicaments and biological substances; Z79.899 Other long term (current) drug therapy
CPT/HCPCS: 36415; 80053; 81001; 83690; 85025; 96361; 96365; 96375; 99285; J0780; J2060; J3480; J7030

== ENCOUNTER 2020-11-10 15:13 | Emergency (ER) | payer MEDICAID ==
[~2020-11-10] VITALS: Ht 175.3 cm; Wt 94.0 kg
[~2020-11-10 15:13] MED LIST changes: +DICY10CA88 PO; -OMEP40CA13 PO; +OMEP40CA21 PO
[2020-11-10 15:36] VITALS: BP 146/113
[2020-11-10] MEDS ORDERED: ondansetron 4mg rapidly disintigrating tab PO ONE (15:45)
[2020-11-10 16:03] LABS: BASOPHILS # (AUTO) 0.1 X10'3 (0-0.2); BASOPHILS % (AUTO) 0.9 % (0-1); EOSINOPHILS # (AUTO) 0.1 X10'3 (0-0.9); HEMATOCRIT 52.9 % (42.0-52.0); LYMPHOCYTES # (AUTO) 1.5 X10'3 (1.1-4.8); LYMPHOCYTES % (AUTO) 14.9 % (21-51); MEAN CORPUSCULAR HEMOGLOBIN 30.2 PG (27.0-31.0); MEAN CORPUSCULAR HGB CONC 34.1 g/dL (33.0-36.5); MEAN CORPUSCULAR VOLUME 88.7 FL (78-98); MEAN PLATELET VOLUME 7.8 FL (7.4-10.4); MONOCYTES # (AUTO) 0.4 X10'3 (0-0.9); MONOCYTES % (AUTO) 4.3 % (2-12); NEUTROPHILS % (AUTO) 78.9 % (42-75); PLATELET COUNT 325 X10'3 (140-440); RED BLOOD COUNT 5.97 X10'6 (4.70-6.10); RED CELL DISTRIBUTION WIDTH 13.8 % (11.5-14.5); WHITE BLOOD COUNT 10.2 X10'3 (4.5-11.0)
[2020-11-10 16:16] LABS: ALANINE AMINOTRANSFERASE 26 U/L (12-78); ALBUMIN 4.6 G/DL (3.4-5.0); ALBUMIN/GLOBULIN RATIO 1.1 (1.1-1.5); ALKALINE PHOSPHATASE 56 IU/L (46-116); ANION GAP 13 (8-16); ASPARTATE AMINO TRANSFERASE 20 U/L (10-37); BILIRUBIN,TOTAL 1.8 MG/DL (0.1-1.0); BLOOD UREA NITROGEN 12 MG/DL (7-18); BUN/CREATININE RATIO 10.3 (5.4-32.0); CALCIUM 9.6 MG/DL (8.5-10.1); CHLORIDE 104 MMOL/L (99-107); CREATININE 1.16 MG/DL (0.60-1.10); GLUCOSE 114 MG/DL (70-104); LIPASE 82 U/L (73-393); POTASSIUM 3.9 MMOL/L (3.5-5.1); SODIUM 142 MMOL/L (135-145); TOTAL CARBON DIOXIDE 25.3 MMOL/L (24-32); TOTAL PROTEIN 8.7 G/DL (6.4-8.2); eGFR 73 ML/MIN
== END 2020-11-10 19:53 | disposition left against medical advice (07) ==
LOC: ER 15:14
DX: R10.11 Right upper quadrant pain (principal); R11.10 Vomiting, unspecified; K21.9 Gastro-esophageal reflux disease without esophagitis; F12.90 Cannabis use, unspecified, uncomplicated; Z90.49 Acquired absence of other specified parts of digestive tract; Z72.89 Other problems related to lifestyle; Z88.8 Allergy status to other drugs, medicaments and biological substances; Z79.899 Other long term (current) drug therapy
CPT/HCPCS: 36415; 80053; 83690; 85025; 99283